=== PATIENT | female | born 1980 | race Caucasian/White ===

== ENCOUNTER → 2017-12-01 | Outpatient (CLI) | payer OTHER ==
[2017-12-01 15:31] LABS: Basophils # (A) 0.1 k/uL (0-0.2); Basophils % (A) 1 %; Eosinophils # (A) 0.2 k/uL (0-0.7); Eosinophils % (A) 2 %; HCT 43.5 % (34.0-46.0); HGB 14.1 gm/dL (11.4-16.0); Lymphocytes # (A) 2.6 k/uL (1.0-4.8); Lymphocytes % (A) 28 %; MCH 29.5 pg (25.0-35.0); MCHC 32.4 g/dL (31.0-37.0); MCV 91.1 fL (80.0-100.0); Mean Platelet Volume 7.1; Monocytes # (A) 0.4 k/uL (0-1.0); Monocytes % (A) 5 %; Neutrophils # (A) 5.7 k/uL (1.3-7.7); Neutrophils % (A) 62 %; Platelet Count 329 k/uL (150-450); RBC 4.77 m/uL (3.80-5.40); RDW 12.9 % (11.5-15.5); WBC 9.2 k/uL (3.8-10.6)
[2017-12-01 15:39] LABS: ALT 14 U/L (9-52); AST 15 U/L (14-36); Blood Urea Nitrogen 12 mg/dL (7-17)
== END | disposition home or self-care (01) ==
LOC: LABWHC1 14:43
PROVIDERS: ATTEND Psychiatry & Neurology Neurology
DX: R51 Headache (principal)
CPT/HCPCS: 36415; 82565; 84450; 84460; 84520; 85025

== ENCOUNTER 2017-12-04 14:31 | Emergency (ER) | payer MEDICARE, OTHER ==
[2017-12-04 14:38] VITALS: BP 110/71; PULSE 91; RESP 18; TEMP 97
--- NOTE | 2017-12-04 15:25 | ED ---
General Adult HPI - General Chief complaint: Extremity Injury, Upper Stated complaint: hand injury Time Seen by Provider: 12/04/17 14:45 Source: patient, RN notes reviewed Mode of arrival: ambulatory Limitations: no limitations - History of Present Illness Initial comments: Patient's a 37-year-old female who presents emergency room today with a chief complaint of an injury to the right hand that occurred 2 days ago. She states that she was upset her anxiety was high and she punched a door frame. She does admit to pain locally to the right hand. She states worse with certain movements. She does admit that she is right-handed. Denies any other complaints or symptoms. Patient denies any recent fever, chills, shortness of breath, chest pain, back pain, abdominal pain, nausea or vomiting, numbness or tingling, headaches or visual changes, or any other complaints. - Related Data Home Medications Medication Instructions Recorded Confirmed DULoxetine HCL [Cymbalta] 60 mg PO BID 10/26/14 12/04/17 Montelukast Sodium [Singulair] 10 mg PO DAILY 10/26/14 12/04/17 Cetirizine HCl 10 mg PO DAILY 12/17/15 12/04/17 Gabapentin 600 mg PO TID 12/17/15 12/04/17 Atomoxetine HCl [Strattera] 25 mg PO HS 12/04/17 12/04/17 Ipratropium/Albuterol Sulfate 1 puff INHALATION RT-QID 12/04/17 12/04/17 [Combivent Respimat Inhaler] Omeprazole [PriLOSEC] 20 mg PO AC-BID 12/04/17 12/04/17 Prazosin [Minipress] 2 mg PO HS 12/04/17 12/04/17 Pregabalin [Lyrica] 200 mg PO TID 12/04/17 12/04/17 busPIRone HCl [Buspar] 5 mg PO BID 12/04/17 12/04/17 tiZANidine [Zanaflex] 4 mg PO TID 12/04/17 12/04/17 Allergies Allergy/AdvReac Type Severity Reaction Status Date / Time ampicillin Allergy Diarrhea Verified 12/04/17 14:48 ciprofloxacin Allergy Rash/Hives Verified 12/04/17 14:48 SUDACHOLINESTERASE Allergy Unknown Uncoded 12/04/17 14:38 Review of Systems ROS Statement: Those systems with pertinent positive or pertinent negative responses have been documented in the HPI. ROS Other: All systems not noted in ROS Statement are negative. Past Medical History Past Medical History: Hypertension Additional Past Medical History / Comment(s): chronic (R) ankle pain, pseudocolonesterase. migraine rosenberg History of Any Multi-Drug Resistant Organisms: None Reported Past Surgical History: Breast Surgery, Hernia Repair, Orthopedic Surgery, Tubal Ligation Additional Past Surgical History / Comment(s): breast reduction, cadavor ligament in (R) ankle. Bilateral ankle surgery, Right ovary cyst drainage, plate in left ankle. Past Anesthesia/Blood Transfusion Reactions: Previous Problems w/ Anesthesia Past Psychological History: Anxiety, Depression, PTSD Smoking Status: Current every day smoker Past Alcohol Use History: Occasional Past Drug Use History: Marijuana - Past Family History Mother Family Medical History: Hypertension Father Family Medical History: Hypertension General Exam - General Exam Comments Initial Comments: General: The patient is awake and alert, in no distress, and does not appear acutely ill. Neck: The neck is supple, there is no tenderness or JVD. Cardiovascular: There is a regular rate and rhythm. No murmur, rub or gallop is appreciated. Respiratory: Lungs are clear to auscultation, respirations are non-labored, breath sounds are equal. No wheezes, stridor, rales, or rhonchi. Musculoskeletal: Patient does have bruising over the fourth and fifth MCP joint. Shows good range of motion. Sensations are intact. No tenderness down to the digits. No tenderness to the right elbow. Mild tenderness over the distal right radius. Sensation is intact pulses 2+. Neurological: A&O x 3. CN II-XII intact, There are no obvious motor or sensory deficits. Coordination appears grossly intact. Speech is normal. Skin: Skin is warm and dry and no rashes or lesions are noted. Psychiatric: Normal mood and affect. Limitations: no limitations Course Vital Signs 12/04/17 14:35 Temperature 97.0 F L Pulse Rate 91 Respiratory 18 Rate Blood Pressure 110/71 O2 Sat by Pulse 100 Oximetry Medical Decision Making - Medical Decision Making X-ray reviewed and is negative for any sign of fracture dislocation. Results were discussed with the patient. Patient advised to use Tylenol and ibuprofen for pain. Advised ice elevate and to follow-up in 7-10 days if symptoms persist. Disposition Clinical Impression: Hand contusion Disposition: HOME SELF-CARE Condition: Good Instructions: Contusion in Adults (ED) Additional Instructions: Please use medication as discussed. Please follow-up with family doctor or orthopedics for repeat x-rays in 7-10 days if symptoms persist. Referrals: Leno Jones MD [Primary Care Provider] - 1-2 days Time of Disposition: 15:49
--- NOTE | 2017-12-04 17:04 | XR ---
EXAMINATION TYPE: XR hand complete RT DATE OF EXAM: 12/04/2017 CLINICAL HISTORY: Right hand pain after punching a door TECHNIQUE: Frontal, lateral and oblique images of the right hand are obtained. COMPARISON: None. FINDINGS: There is no acute fracture/dislocation evident in the right hand. The joint spaces in the right hand appear within normal limits. The overlying soft tissue appears unremarkable. IMPRESSION: There is no acute fracture or dislocation in the right hand.
== END 2017-12-04 15:56 | disposition home or self-care (01) ==
LOC: EC 14:31
DX: S60.221A Contusion of right hand, initial encounter (principal); I10 Essential (primary) hypertension; F32.9 Major depressive disorder, single episode, unspecified; F41.9 Anxiety disorder, unspecified; F17.200 Nicotine dependence, unspecified, uncomplicated; Z79.899 Other long term (current) drug therapy; Z88.1 Allergy status to other antibiotic agents; Z88.8 Allergy status to other drugs, medicaments and biological substances; W22.09XA Striking against other stationary object, initial encounter; Y92.009 Unspecified place in unspecified non-institutional (private) residence as the place of occurrence of the external cause
CPT/HCPCS: 99283

== ENCOUNTER 2019-03-01 03:00 | Inpatient (IN) | payer MEDICARE, OTHER ==
[2019-03-01] MEDS ORDERED: Potassium Replacement Protocol 1 EACH MISC MISCELLANE PRN (06:10)
[2019-03-01] MEDS: ACETAMINOPHEN TAB 325 MG TAB PO PRN ×3 (06:17→23:43)
[2019-03-01] MEDS: SODIUM CHLORIDE 0.9% 1,000 ML IV SCH (06:20)
[2019-03-01 07:14] LABS: HCT 33.8 % (34.0-46.0); HGB 10.8 gm/dL (11.4-16.0); MCH 28.9 pg (25.0-35.0); MCHC 32.1 g/dL (31.0-37.0); Mean Platelet Volume 7.2; Platelet Count 315 k/uL (150-450); RBC 3.75 m/uL (3.80-5.40); RDW 14.6 % (11.5-15.5); WBC 13.4 k/uL (3.8-10.6)
[2019-03-01 07:20] LABS: Calcium 8.5 mg/dL (8.4-10.2); Potassium 3.4 mmol/L (3.5-5.1)
[2019-03-01] MEDS ORDERED: POTASSIUM CHLORIDE ER 20 MEQ TAB.ER PO STA (09:33)
--- NOTE | 2019-03-01 09:52 | P.NPCON ---
History of Present Illness - Reason for Consult acute renal failure - History of Present Illness Reason for consultation: Acute kidney injury History of present illness: Patient is a 38-year-old female seen in renal consultation for acute kidney injury. Patient's creatinine and November 2017 was near 1. Patient went to [facility] [place] yesterday due to syncopal episode. Patient says she was getting up from bed to go to the bathroom and passed out. Patient is unsure as to how long she was down for. Patient states she gradually got up and then felt dizzy and had another syncopal episode. When she went to [facility] [place] her blood pressure was in the systolic 70s. Creatinine was up to 4.7. Patient states she was recently diagnosed with a UTI and was started on Bactrim. Patient took about 2 days of the antibiotic. She denies any hematuria or dysuria. She also had Botox done for migraine last week and since then has been feeling quite unwell. She's been having intermittent episodes of vomiting and diarrhea. Oral intake has been fair. No history of diabetes. Denies chest pain or shortness of breath. No edema. Patient states her paternal grandmother was on hemodialysis but is unsure of the cause. Vital signs are stable. General: The patient appeared well nourished and normally developed. HEENT: Head exam is unremarkable. Neck is without jugular venous distension. LUNGS: Lungs are clear to auscultation and percussion. Breath sounds decreased. HEART: Rate and Rhythm are regular. First and second heart sounds normal. No murmurs, rubs or gallops. ABDOMEN: Abdominal exam reveals normal bowel sounds. Non-tender and non- distended. No evidence of peritonitis. EXTREMITITES: No clubbing, cyanosis, or edema. Past Medical History Past Medical History: Hypertension Additional Past Medical History / Comment(s): chronic (R) ankle pain, pseudocolonesterase. migraine, fx tail bone lumbar disc L4-L5. History of Any Multi-Drug Resistant Organisms: None Reported Past Surgical History: Ablation, Breast Surgery, Hernia Repair, Orthopedic Surgery, Tubal Ligation Additional Past Surgical History / Comment(s): breast reduction, cadavor ligament in (R) ankle. Bilateral ankle surgery, Right ovary cyst drainage, plate in left ankle Past Anesthesia/Blood Transfusion Reactions: Previous Problems w/ Anesthesia Additional Past Anesthesia/Blood Transfusion Reaction / Comment(s): pseud ocolonesterase Past Psychological History: Anxiety, Depression, Panic Disorder, PTSD Smoking Status: Current every day smoker Past Alcohol Use History: Occasional Additional Past Alcohol Use History / Comment(s): Pt. denies current alcohol use. Past Drug Use History: Marijuana Additional Drug Use History / Comment(s): Pt. admits to marijuana use. - Past Family History Mother Family Medical History: Hypertension, Osteoarthritis (OA), Rheumatoid Arthritis (RA) Father Family Medical History: Hypertension Medications and Allergies Home Medications Medication Instructions Recorded Confirmed Type Montelukast Sodium [Singulair] 10 mg PO DAILY 10/26/14 03/01/19 History Cetirizine HCl 10 mg PO HS 12/17/15 03/01/19 History Gabapentin 600 mg PO TID PRN 12/17/15 03/01/19 History Atomoxetine HCl [Strattera] 50 mg PO BID 12/04/17 03/01/19 History Ipratropium/Albuterol Sulfate 1 puff INHALATION RT-QID 12/04/17 03/01/19 History [Combivent Respimat Inhaler] Omeprazole [PriLOSEC] 20 mg PO AC-BID 12/04/17 03/01/19 History Prazosin [Minipress] 3 mg PO HS 12/04/17 03/01/19 History Pregabalin [Lyrica] 200 mg PO TID 12/04/17 03/01/19 History tiZANidine [Zanaflex] 4 mg PO TID 12/04/17 03/01/19 History Cyanocobalamin [Vitamin B-12] 500 mcg PO DAILY 03/01/19 03/01/19 History Ondansetron HCl [Zofran] 8 mg PO BID PRN 03/01/19 03/01/19 History PARoxetine [Paxil] 20 mg PO HS 03/01/19 03/01/19 History Rizatriptan Benzoate [Maxalt] 10 mg PO DAILY PRN 03/01/19 03/01/19 History busPIRone HCl [Buspar] 10 mg PO BID 03/01/19 03/01/19 History Allergies Allergy/AdvReac Type Severity Reaction Status Date / Time ampicillin Allergy Diarrhea Verified 03/01/19 08:18 ciprofloxacin Allergy Rash/Hives Verified 03/01/19 08:18 SUDACHOLINESTERASE Allergy Unknown Uncoded 12/04/17 14:38 Physical Exam Vitals: Vital Signs Temp Pulse Resp BP Pulse Ox 03/01/19 08:26 98.5 F 109 H 16 91/53 93 L 03/01/19 03:53 113 H 16 03/01/19 03:07 98.4 F 113 H 15 96/56 97 Intake and Output 02/28/19 03/01/19 03/01/19 22:59 06:59 14:59 Other: # Voids 1 Weight 98.7 kg Results - Lab Results Most recent lab results Calcium 8.5 mg/dL (8.4-10.2) 03/01/19 06:52 Magnesium 2.0 mg/dL (1.6-2.3) 03/01/19 06:52 03/01/19 06:52 03/01/19 06:52 Assessment and Plan Plan: Assessment: 1. Acute kidney injury mostly prerenal secondary to hypotension. Creatinine was 4.7 at [facility] [place] yesterday and is down to 2.97 today. Creatinine from November 2017 was near 1. 2. Hypokalemia from poor oral intake. 3. Metabolic acidosis secondary to acute kidney injury and IV fluids. 4. Hypotension related to intravascular volume depletion. Better with IV fluids. 5. Syncopal episode likely related to hypovolemia. Plan: Increase rate of normal saline to 75 mL an hour. Replace potassium. 40 mEq today. Add oral sodium bicarbonate. Check urinalysis. Check renal ultrasound. Check a.m. cortisol level. Repeat electrolytes in the morning. Thank you for the consultation. I will continue to follow the patient with you during her hospital stay.
[2019-03-01] MEDS: SODIUM BICARBONATE TAB 650 MG TAB PO SCH ×2 (10:51→22:45)
[2019-03-01 10:58] LABS: Appearance,Urine Clear (Clear); Bilirubin,Urine Negative (Negative); Blood,Urine Small (Negative); Color,Urine Light Yellow; Glucose,Urine (UA) Negative (Negative); Ketones,Urine Negative (Negative); Leukocyte Esterase,Urine Negative (Negative); Nitrite,Urine Negative (Negative); Protein,Urine Trace (Negative); RBC,Urine 4 /hpf (0-5); Specific Gravity,Urine 1.013 (1.001-1.035); Squamous Epithelial Cell,Urine <1 /hpf (0-4)
[2019-03-01] MEDS ORDERED: ONDANSETRON 4 MG TAB PO PRN (12:01)
[2019-03-01] MEDS ORDERED: SUMAtriptan SUCCINATE 50 MG TAB PO PRN (12:01)
[2019-03-01] MEDS ORDERED: busPIRone HCl 10 MG TAB PO SCH ×3 (12:31→21:00)
[2019-03-01] MEDS: MONTELUKAST 10 MG TAB PO SCH (12:52)
[2019-03-01] MEDS: PREGABALIN 100 MG CAP PO SCH ×2 (12:52→22:45)
[2019-03-01] MEDS: FAMOTIDINE 20 MG TAB PO SCH (12:53)
--- NOTE | 2019-03-01 13:16 | US ---
EXAMINATION TYPE: US kidneys/renal and bladder DATE OF EXAM: 03/01/2019 COMPARISON: NONE CLINICAL HISTORY: alicia. Respiratory infection, UTI, takes medication to decrease urinary frequency EXAM MEASUREMENTS: Right Kidney: 9.7 x 5.0 x 4.5 cm Left Kidney: 10.5 x 5.6 x 4.9 cm Post Void Residual Volume: not assessed on inpatient still needing to provide urine sample Right Kidney: No hydronephrosis or masses seen Left Kidney: No hydronephrosis or masses seen Bladder: minimally filled incompletely distended Bilateral Jets seen: yes IMPRESSION: No suspicious acute changes renal ultrasound
--- NOTE | 2019-03-01 14:14 | P.HPIM ---
History of Present Illness 32-year-old pleasant female came in with complaints of lightheadedness about to pass out, had a syncopal episode multiple of them. Patient is found to have elevated creatinine of around 4% baseline of around 1. Patient was recently started on Bactrim for her urinary tract infection patient doesn't have any UTI symptoms at this time patient is not febrile. Patient did pressure although remains low in 90 systolic at this time in spite of IV fluids. With IV fluids her creatinine has come down to 2.7. He shouldn't that was a new trach for couple days. Patient has multiple psychiatric issues because of which patient is on multiple antipsychotic medications. Patient is trying to get rid of as many medications as possible. Patient denied any cough dysuria increased urinary frequency actually patient is anuric and uric as mentioned above. Review of Systems REVIEW OF SYSTEMS: CONSTITUTIONAL: No fever, no malaise, no fatigue. HEENT: No recent visual problems or hearing problems. Denied any sore throat. CARDIOVASCULAR: No chest pain, orthopnea, PND, no palpitations, PULMONARY: No shortness of breath, no cough, no hemoptysis. GASTROINTESTINAL: No diarrhea, no nausea, no vomiting, no abdominal pain. NEUROLOGICAL: No headaches, no weakness, no numbness. HEMATOLOGICAL: Denies any bleeding or petechiae. GENITOURINARY: Denies any burning micturition, frequency, or urgency. MUSCULOSKELETAL/RHEUMATOLOGICAL: Denies any joint pain, swelling, or any muscle pain. ENDOCRINE: Denies any polyuria or polydipsia. The rest of the 14-point review of systems is negative. Past Medical History Past Medical History: Hypertension Additional Past Medical History / Comment(s): chronic (R) ankle pain, pseudocolonesterase. migraine, fx tail bone lumbar disc L4-L5. History of Any Multi-Drug Resistant Organisms: None Reported Past Surgical History: Ablation, Breast Surgery, Hernia Repair, Orthopedic Surgery, Tubal Ligation Additional Past Surgical History / Comment(s): breast reduction, cadavor ligament in (R) ankle. Bilateral ankle surgery, Right ovary cyst drainage, plate in left ankle Past Anesthesia/Blood Transfusion Reactions: Previous Problems w/ Anesthesia Additional Past Anesthesia/Blood Transfusion Reaction / Comment(s): pseudocolonesterase Past Psychological History: Anxiety, Depression, Panic Disorder, PTSD Smoking Status: Current every day smoker Past Alcohol Use History: Occasional Additional Past Alcohol Use History / Comment(s): Pt. denies current alcohol use. Past Drug Use History: Marijuana Additional Drug Use History / Comment(s): Pt. admits to marijuana use. - Past Family History Mother Family Medical History: Hypertension, Osteoarthritis (OA), Rheumatoid Arthritis (RA) Father Family Medical History: Hypertension Medications and Allergies Home Medications Medication Instructions Recorded Confirmed Type Montelukast Sodium [Singulair] 10 mg PO DAILY 10/26/14 03/01/19 History Cetirizine HCl 10 mg PO HS 12/17/15 03/01/19 History Atomoxetine HCl [Strattera] 50 mg PO BID 12/04/17 03/01/19 History Ipratropium/Albuterol Sulfate 1 puff INHALATION RT-QID 12/04/17 03/01/19 History [Combivent Respimat Inhaler] Omeprazole [PriLOSEC] 20 mg PO AC-BID 12/04/17 03/01/19 History Prazosin [Minipress] 3 mg PO HS 12/04/17 03/01/19 History Pregabalin [Lyrica] 200 mg PO TID 12/04/17 03/01/19 History tiZANidine [Zanaflex] 4 mg PO TID 12/04/17 03/01/19 History Cyanocobalamin [Vitamin B-12] 500 mcg PO DAILY 03/01/19 03/01/19 History Ondansetron HCl [Zofran] 8 mg PO BID PRN 03/01/19 03/01/19 History PARoxetine [Paxil] 20 mg PO HS 03/01/19 03/01/19 History Rizatriptan Benzoate [Maxalt] 10 mg PO DAILY PRN 03/01/19 03/01/19 History busPIRone HCl [Buspar] 20 mg PO HS 03/01/19 03/01/19 History Allergies Allergy/AdvReac Type Severity Reaction Status Date / Time ampicillin Allergy Diarrhea Verified 03/01/19 08:18 ciprofloxacin Allergy Rash/Hives Verified 03/01/19 08:18 SUDACHOLINESTERASE Allergy Unknown Uncoded 12/04/17 14:38 Physical Exam Vitals: Vital Signs Temp Pulse Resp BP Pulse Ox 03/01/19 12:58 98.8 F 109 H 16 100/66 98 03/01/19 08:26 98.5 F 109 H 16 91/53 93 L 03/01/19 03:53 113 H 16 03/01/19 03:07 98.4 F 113 H 15 96/56 97 Intake and Output 02/28/19 03/01/19 03/01/19 22:59 06:59 14:59 Other: # Voids 1 Weight 98.7 kg PHYSICAL EXAMINATION: GENERAL: The patient is alert and oriented x3, not in any acute distress. Well developed, well nourished. HEENT: Pupils are round and equally reacting to light. EOMI. No scleral icterus. No conjunctival pallor. Normocephalic, atraumatic. No pharyngeal erythema. No thyromegaly. CARDIOVASCULAR: S1 and S2 present. No murmurs, rubs, or gallops. PULMONARY: Chest is clear to auscultation, no wheezing or crackles. ABDOMEN: Soft, nontender, nondistended, normoactive bowel sounds. No palpable organomegaly. MUSCULOSKELETAL: No joint swelling or deformity. EXTREMITIES: No cyanosis, clubbing, or pedal edema. NEUROLOGICAL: Gross neurological examination did not reveal any focal deficits. SKIN: No rashes. Results CBC & Chem 7: 03/01/19 06:52 03/01/19 06:52 Labs: Abnormal Lab Results - Last 24 Hours (Table) 03/01/19 03/01/19 03/01/19 Range/Units 06:52 06:52 10:30 WBC 13.4 H (3.8-10.6) k/uL RBC 3.75 L (3.80-5.40) m/uL Hgb 10.8 L (11.4-16.0) gm/dL Hct 33.8 L (34.0-46.0) % Potassium 3.4 L (3.5-5.1) mmol/L Chloride 110 H (98-107) mmol/L Carbon Dioxide 19 L (22-30) mmol/L BUN 30 H (7-17) mg/dL Creatinine 2.97 H (0.52-1.04) mg/dL Urine Protein Trace H (Negative) Urine Blood Small H (Negative) Thrombosis Risk Factor Assmnt - Choose All That Apply Any of the Below Risk Factors Present?: Yes Each Factor Represents 1 point: Obesity (BMI >25) Thrombosis Risk Factor Assessment Total Risk Factor Score: 1 Thrombosis Risk Factor Assessment Level: Low Risk Assessment and Plan Plan: -Acute renal failure prerenal azotemia secondary to severe hypotension may be related to some of her medications including Minipress which is being held patient will be continued on IV fluids monitor kidney function. Ultrasound of the kidney was ordered by nephrology. may have contributed to intravascular volume depletion because of its diuretic effect. And there may be some false elevation of serum creatinine from Bactrim -Hypokalemia secondary to poor parenting take patient to continue on IV fluids will be increased to eat well at home. -Metabolic acidosis secondary to uremia anion gap metabolic acidosis patient will be continued on IV fluids and bicarbonate. -Hypotension secondary to intravascular depletion, improving with IV fluids will be continued. The kidney function tomorrow -Syncope secondary to hypovolemia Multiple other psychiatric issues including PTSD Disorder for which patient will be resumed on her home medications and Minipress will be held because of low blood pressure may patient is using Minipress for nightmares. -Nicotine abuse: Counseling was provided -Peripheral neuropathy from osteoarthritis most probably for which patient will be continued on K to low-dose gabapentin will be discontinued
[2019-03-01] MEDS: IPRATROPIUM-ALBUTEROL 3 ML NEB INHALATION SCH ×2 (16:13→20:07)
[2019-03-01] MEDS ORDERED: PARoxetine 20 MG TAB PO SCH (21:00)
[2019-03-01] MEDS ORDERED: LORATADINE 10 MG TAB PO SCH (21:00)
[2019-03-01] MEDS: ATOMOXETINE PO SCH (22:43)
[2019-03-01] MEDS ORDERED: guaiFENesin 600 MG TABLET.ER PO ONE (23:00)
[2019-03-02] MEDS: SODIUM CHLORIDE 0.9% 1,000 ML IV SCH (02:36)
[2019-03-02 05:51] VITALS: RESP 16
[2019-03-02 07:16] VITALS: BP 123/78; TEMP 97.9
[2019-03-02 07:52] LABS: Calcium 8.8 mg/dL (8.4-10.2); Magnesium 1.8 mg/dL (1.6-2.3)
[2019-03-02] MEDS: IPRATROPIUM-ALBUTEROL 3 ML NEB INHALATION SCH ×2 (08:01→11:31)
[2019-03-02] MEDS ORDERED: FAMOTIDINE 20 MG TAB PO SCH (09:00)
[2019-03-02] MEDS ORDERED: MONTELUKAST 10 MG TAB PO SCH (09:00)
--- NOTE | 2019-03-02 09:14 | P.PN ---
Subjective Patient is seen in follow-up for acute kidney injury. Creatinine was 24.7 upon admission at [facility] on February 28 and is 1.21 today. She is currently maintained on IV fluids. Admits to good urine output. Complains of headache. No vomiting or diarrhea. Vital signs are stable. General: The patient appeared well nourished and normally developed. HEENT: Head exam is unremarkable. Neck is without jugular venous distension. LUNGS: Lungs are clear to auscultation and percussion. Breath sounds decreased. HEART: Rate and Rhythm are regular. First and second heart sounds normal. No murmurs, rubs or gallops. ABDOMEN: Abdominal exam reveals normal bowel sounds. Non-tender and non- distended. No evidence of peritonitis. EXTREMITITES: No clubbing, cyanosis, or edema. Objective - Vital Signs Vital signs: Vital Signs Temp 97.9 F 03/02/19 07:00 Pulse 100 03/02/19 08:14 Resp 16 03/02/19 07:00 BP 123/78 03/02/19 07:00 Pulse Ox 99 03/02/19 07:00 Intake & Output 03/01/19 03/02/19 03/02/19 18:59 06:59 18:59 Intake Total 800 800 Output Total 2000 Balance 800 -1200 Intake: Intake, IV Titration 800 800 Amount Sodium Chloride 0.9% 1, 800 800 000 ml @ 100 mls/hr IV . Q10H [facility] Rx#:[id number] Output: Urine 2000 Other: Voiding Method Toilet # Voids 3 - Labs CBC & Chem 7: 03/01/19 06:52 03/02/19 07:16 Labs: Abnormal Lab Results - Last 24 Hours (Table) 03/01/19 03/02/19 Range/Units 10:30 07:16 Chloride 111 H (98-107) mmol/L Creatinine 1.21 H (0.52-1.04) mg/dL Urine Protein Trace H (Negative) Urine Blood Small H (Negative) Assessment and Plan Plan: Assessment: 1. Acute kidney injury mostly prerenal secondary to hypotension. Creatinine was 4.7 at [facility] on February 28 and is down to 1.21 today. Creatinine from November 2017 was near 1. UA is quite benign except trace proteinuria. No hydronephrosis noted on renal ultrasound. 2. Hypokalemia from poor oral intake. Improved post replacement. 3. Metabolic acidosis secondary to acute kidney injury and IV fluids. Better. Maintained on oral sodium bicarbonate. 4. Hypotension related to intravascular volume depletion. Better with IV fl uids. 5. Syncopal episode likely related to hypovolemia. Plan: Maintain normal saline at 75 mL an hour. Encouraged oral intake. Stable to be discharged home from nephrology standpoint. She is to follow up outpatient in the next 2 weeks.
[2019-03-02] MEDS: ATOMOXETINE PO SCH (11:20)
[2019-03-02] MEDS: SODIUM BICARBONATE TAB 650 MG TAB PO SCH (11:29)
[2019-03-02] MEDS: PREGABALIN 100 MG CAP PO SCH (11:30)
[2019-03-02] MEDS: MONTELUKAST 10 MG TAB PO SCH (11:30)
[2019-03-02] MEDS: FAMOTIDINE 20 MG TAB PO SCH (11:30)
[2019-03-02 11:32] VITALS: PULSE 96
--- NOTE | 2019-03-02 12:07 | P.DS ---
Providers Date of admission: 03/01/19 08:29 Attending physician: Remy Armstrong Consults: 03/01/19 06:05 Consult Physician Stat Consulting Provider: Humza Hay Consult Reason/Comments: High Creatinine Do you want consulting provider notified?: Yes, Notify in am Placement Type Exists?: Yes Primary care physician: [facility] Course: 32-year-old pleasant female came in with complaints of lightheadedness about to pass out, had a syncopal episode multiple of them. Patient is found to have elevated creatinine of around 4% baseline of around 1. Patient was recently started on Bactrim for her urinary tract infection patient doesn't have any UTI symptoms at this time patient is not febrile. Patient did pressure although remains low in 90 systolic at this time in spite of IV fluids. With IV fluids her creatinine has come down to 2.7. He shouldn't that was a new trach for couple days. Patient has multiple psychiatric issues because of which patient is on multiple antipsychotic medications. Patient is trying to get rid of as many medications as possible. Patient denied any cough dysuria increased urinary frequency actually patient is anuric as mentioned above. 03/02/2019 Patient's creatinine improved patient is clinically doing well will be discharged today. PHYSICAL EXAMINATION: GENERAL: The patient is alert and oriented x3, not in any acute distress. Well developed, well nourished. HEENT: Pupils are round and equally reacting to light. EOMI. No scleral icterus. No conjunctival pallor. Normocephalic, atraumatic. No pharyngeal erythema. No thyromegaly. CARDIOVASCULAR: S1 and S2 present. No murmurs, rubs, or gallops. PULMONARY: Chest is clear to auscultation, no wheezing or crackles. ABDOMEN: Soft, nontender, nondistended, normoactive bowel sounds. No palpable organomegaly. MUSCULOSKELETAL: No joint swelling or deformity. EXTREMITIES: No cyanosis, clubbing, or pedal edema. NEUROLOGICAL: Gross neurological examination did not reveal any focal deficits. SKIN: No rashes. Assessment and Plan Plan: -Acute renal failure prerenal azotemia secondary to severe hypotension may be related to some of her medications including Minipress improved with IV fluids and Bactrim contributed to her renal failure as well. -Hypokalemia -Metabolic acidosis secondary to uremia anion gap metabolic acidosis -Hypotension secondary to intravascular depletion, -Syncope secondary to hypovolemia Multiple other psychiatric issues including PTSD Plan - Discharge Summary Discharge Rx Participant: No New Discharge Prescriptions: New Pregabalin [Lyrica] 100 mg PO TID #20 cap Continue Montelukast Sodium [Singulair] 10 mg PO DAILY Cetirizine HCl 10 mg PO HS Atomoxetine HCl [Strattera] 50 mg PO BID Omeprazole [PriLOSEC] 20 mg PO AC-BID Ipratropium/Albuterol Sulfate [Combivent Respimat Inhaler] 1 puff INHALATION RT-QID PARoxetine [Paxil] 20 mg PO HS Ondansetron HCl [Zofran] 8 mg PO BID PRN PRN Reason: Nausea Cyanocobalamin [Vitamin B-12] 500 mcg PO DAILY busPIRone HCl [Buspar] 20 mg PO HS Rizatriptan Benzoate [Maxalt] 10 mg PO DAILY PRN PRN Reason: Migraine Headache Discontinued tiZANidine [Zanaflex] 4 mg PO TID Pregabalin [Lyrica] 200 mg PO TID Prazosin [Minipress] 3 mg PO HS Discharge Medication List Montelukast Sodium [Singulair] 10 mg PO DAILY 10/26/14 [History] Cetirizine HCl 10 mg PO HS 12/17/15 [History] Atomoxetine HCl [Strattera] 50 mg PO BID 12/04/17 [History] Ipratropium/Albuterol Sulfate [Combivent Respimat Inhaler] 1 puff INHALATION RT- QID 12/04/17 [History] Omeprazole [PriLOSEC] 20 mg PO AC-BID 12/04/17 [History] Cyanocobalamin [Vitamin B-12] 500 mcg PO DAILY 03/01/19 [History] Ondansetron HCl [Zofran] 8 mg PO BID PRN 03/01/19 [History] PARoxetine [Paxil] 20 mg PO HS 03/01/19 [History] Rizatriptan Benzoate [Maxalt] 10 mg PO DAILY PRN 03/01/19 [History] busPIRone HCl [Buspar] 20 mg PO HS 03/01/19 [History] Pregabalin [Lyrica] 100 mg PO TID #20 cap 03/02/19 [Rx] Follow up Appointment(s)/Referral(s): Fouzia Condon MD [STAFF PHYSICIAN] - 1 Week (Dr. Condon's office will call patient with an appoitment date and time. ) Patient Instructions/Handouts: Pregabalin (By mouth), Acute Kidney Injury (DC), Urinary Tract Infection in Women (DC) Discharge Disposition: HOME SELF-CARE
== END 2019-03-02 13:34 | disposition home or self-care (01) | DRG 683 ==
LOC: 4SSUR 03:00 → OBSVTOIN 08:29
PROVIDERS: ADMIT Internal Medicine; ATTEND Internal Medicine
DX: N17.9 Acute kidney failure, unspecified (principal); E87.2 Acidosis; N39.0 Urinary tract infection, site not specified; I95.9 Hypotension, unspecified; G62.9 Polyneuropathy, unspecified; T44.6X5A Adverse effect of alpha-adrenoreceptor antagonists, initial encounter; E86.1 Hypovolemia; E87.6 Hypokalemia; F17.200 Nicotine dependence, unspecified, uncomplicated; F32.9 Major depressive disorder, single episode, unspecified; F41.0 Panic disorder [episodic paroxysmal anxiety]; F43.10 Post-traumatic stress disorder, unspecified; G43.909 Migraine, unspecified, not intractable, without status migrainosus; I10 Essential (primary) hypertension; M19.90 Unspecified osteoarthritis, unspecified site; G89.29 Other chronic pain; M25.571 Pain in right ankle and joints of right foot; R19.7 Diarrhea, unspecified; R11.10 Vomiting, unspecified; Z79.899 Other long term (current) drug therapy; Z98.51 Tubal ligation status; Z88.1 Allergy status to other antibiotic agents; Z88.0 Allergy status to penicillin; Z88.8 Allergy status to other drugs, medicaments and biological substances; Z82.49 Family history of ischemic heart disease and other diseases of the circulatory system; Z82.61 Family history of arthritis
CPT/HCPCS: 76770; 80048; 81001; 82533; 83735; 85027; 94640